=== PATIENT | female | born 1950 | race Caucasian/White ===

== ENCOUNTER 2017-03-08 23:41 | Emergency (ER) | payer OTHER ==
[2017-03-08 23:52] VITALS: BP 156/95
--- NOTE | 2017-03-09 01:17 | RADIOLOGY REPORT (SQ) ---
EXAM DESCRIPTION: RIBS RIGHT W/PA CHEST COMPLETED DATE/TIME: 03/09/2017 1:09 am REASON FOR STUDY: fall injury COMPARISON: None. TECHNIQUE: Frontal view of the chest and additional views of the left ribs acquired. NUMBER OF VIEWS: Three view. LIMITATIONS: None. FINDINGS: FRONTAL CXR: No pneumothorax. No pleural effusion. No atelectasis or infiltrates. RIBS: Nondisplaced fracture of the lateral 7th rib. OTHER: No other significant finding. IMPRESSION: Nondisplaced fracture of the lateral 7th rib. COMMENT: SITE OF TRAUMA/COMPLAINT MARKED/STAMP COMPLETED: None TECHNICAL DOCUMENTATION: JOB ID: [id number] [employer]- All Rights Reserved
--- NOTE | 2017-03-09 01:24 | ER Document Report ---
ED Fall - General Chief Complaint: Fall Injury Stated Complaint: RIGHT SIDE INJURY POSSIBLE FRACTURE Time Seen by Provider: 03/09/17 00:39 Notes: Patient is a 67 year old female that comes to the ED for chief complaint of a mechanical fall, she states she slipped and fell, hitting her right elbow and her right side against porcelain. This happened over a day ago, she states she started feeling worse when she got up today, she states now she is extremely sore and has difficulty getting up and sitting down. She denies shortness of breath, pain in her chest, dizziness, vomiting. She is very healthy and takes just antiallergy and vitamins. She is not on a blood thinner. - Related data Allergies/Adverse Reactions: No Known Allergies Allergy (Unverified 03/08/17 23:49) Past Medical History - General Information source: Patient - Social History Smoking Status: Never Smoker Frequency of alcohol use: None Drug Abuse: None Lives with: Family Family History: Reviewed & Not Pertinent Pulmonary Medical History: Reports: Hx Asthma - as a child Renal/ Medical History: Denies: Hx Peritoneal Dialysis - Immunizations Immunizations up to date: Yes Hx Diphtheria, Pertussis, Tetanus Vaccination: Yes Review of Systems - Review of Systems Constitutional: No symptoms reported EENT: No symptoms reported Cardiovascular: See HPI Respiratory: See HPI Gastrointestinal: No symptoms reported Genitourinary: No symptoms reported Female Genitourinary: No symptoms reported Musculoskeletal: See HPI Skin: No symptoms reported Hematologic/Lymphatic: No symptoms reported Neurological/Psychological: No symptoms reported Physical Exam - Vital signs Vitals: Temp Pulse Resp BP Pulse Ox 97.4 F 75 18 156/95 H 97 03/08/17 23:51 03/08/17 23:51 03/08/17 23:51 03/08/17 23:51 03/08/17 23:51 Interpretation: Normal - General General appearance: Appears well, Alert In distress: None - When patient moves she appears to have pain, when she is sitting or lying she has no signs of - HEENT Head: Normocephalic, Atraumatic Eyes: Normal Conjunctiva: Normal Extraocular movements intact: Yes Eyelashes: Normal Pupils: PERRL Nasal: Normal Mouth/Lips: Normal Mucous membranes: Normal Pharynx: Normal Neck: Normal - Respiratory Respiratory status: No respiratory distress Chest status: Tender - Tender in the right mid to lower ribs, no contusion, swelling, crepitus, or other abnormality noted Breath sounds: Normal. No: Decreased air movement Chest palpation: Normal - Cardiovascular Rhythm: Regular. No: Tachycardia Heart sounds: Normal auscultation, S1 appreciated, S2 appreciated Murmur: No - Abdominal Inspection: Normal Distension: No distension Bowel sounds: Normal Tenderness: Nontender. No: Tender, Guarding Organomegaly: No organomegaly - Back Back: Normal, Nontender. No: Tender - Extremities General upper extremity: Normal inspection, Nontender, Normal color, Normal ROM , Normal temperature General lower extremity: Normal inspection, Nontender, Normal color, Normal ROM , Normal temperature, Normal weight bearing. No: Elio's sign - Neurological Neuro grossly intact: Yes Cognition: Normal Orientation: AAOx4 Malena Coma Scale Eye Opening: Spontaneous Malena Coma Scale Verbal: Oriented Malena Coma Scale Motor: Obeys Commands Malena Coma Scale Total: 15 Speech: Normal Motor strength normal: LUE, RUE, LLE, RLE Sensory: Normal - Psychological Associated symptoms: Normal affect, Normal mood - Skin Skin Temperature: Warm Skin Moisture: Dry Skin Color: Normal Course - Re-evaluation Re-evalutation: Moves with notable tenderness, she has tenderness over the right side at the ribs, however there is no evidence of trauma, she has no tachypnea, no hypoxia, and has full lung sounds. When she is not moving she is in no distress. Progression of symptoms does not suggest any concerning severe acute abnormality. X-ray imaging showing fracture of the seventh rib, nondisplaced, no other abnormalities. Low suspicion of any intrathoracic abnormality otherwise. Discussed treatment, patient given incentive spirometer, pain medication, stool softener, discussed follow-up, discussed return precautions, patient states understanding and agreement. - Vital Signs Vital signs: Temp Pulse Resp BP Pulse Ox 97.4 F 75 18 156/95 H 97 03/08/17 23:51 03/08/17 23:51 03/08/17 23:51 03/08/17 23:51 03/08/17 23:51 Discharge - Discharge Clinical Impression: Fall Qualifiers: Encounter type: initial encounter Qualified Code(s): W19.XXXA - Unspecified fall, initial encounter Condition: Stable Disposition: HOME, SELF-CARE Additional Instructions: Your imaging shows a nondisplaced fracture of the right seventh rib. No other concerning findings are noted. Physical exam does not indicate any additional concerning abnormalities. Use the incentive spirometer to avoid fluid on her lungs and pneumonia, take the pain medication as prescribed, if you do also take the Colace stool softener to avoid constipation. Follow-up with primary care for additional management. Return to emergency department for any concerning or worsening symptoms. Prescriptions: Morphine Sulfate [Morphine Ir 15 Mg Tablet] 15 mg PO Q4HP PRN #15 tablet PRN Reason: Docusate Sodium [Colace 100 mg Capsule] 100 mg PO DAILY #30 capsule
== END 2017-03-09 02:12 | disposition home or self-care (01) ==
LOC: ER 23:41
DX: S22.31XA Fracture of one rib, right side, initial encounter for closed fracture (principal); S59.901A Unspecified injury of right elbow, initial encounter; W18.12XA Fall from or off toilet with subsequent striking against object, initial encounter
CPT/HCPCS: 99283